=== PATIENT | female | born 1970 | race Caucasian/White ===

== ENCOUNTER 2019-09-30 16:53 | Emergency (ER) | payer OTHER ==
[2019-09-30 17:16] VITALS: BP 127/79
--- NOTE | 2019-09-30 17:28 | ED Physician Documentation ---
Foot Injury - HISTORIAN Historian: patient - HPI Stated Complaint: ft foot pain Chief Complaint: Foot Injury Additional Information: 49 year old female presents with left foot injury. She missed the last 2 steps and rolled her foot. She has swelling to the lateral aspect. Denies any injury to the ankle. Onset: minutes Where: home Severity: mild Context: fall, wearing shoes Associated Symptoms:: swelling, snapping sensation Modifying Factors:: pain on movement - ROS CONST: no problems CVS/RESP: none NEURO: denies: headache GI/: denies: nausea, vomiting MS/SKIN/LYMPH: foot swelling. denies: ankle swelling - PAST HX Past History: other (asthma) Immunizations: UTD Allergies/Adverse Reactions: Allergies Allergy/AdvReac Type Severity Reaction Status Date / Time No Known Allergies Allergy Verified 05/30/16 16:14 Home Medications: Ambulatory Orders Medication Instructions Recorded Albuterol Sulfate [Proair Hfa] 2 puff INH PRN PRN 12/21/13 Albuterol Sulfate [Ventolin HFN] 2.5 mg NEB PRN PRN 05/30/16 Montelukast Sodium [Singulair] 10 mg PO D 05/30/16 - SOCIAL HX Smoking History: non-smoker Alcohol Use: none Drug Use: none - FAMILY HX Family History: none - VITAL SIGNS Vital Signs: Vital Signs Temp Pulse Resp BP Pulse Ox 97.7 F 105 H 18 127/79 95 09/30/19 16:54 09/30/19 16:54 09/30/19 16:54 09/30/19 16:54 09/30/19 16:54 - REVIEWED ASSESSMENTS Nursing Assessment Reviewed: Yes Vitals Reviewed: Yes ED Results Lab/Radiology - Radiology Radiology Impressions: HISTORY: 49-year-old female with left foot pain laterally after injury, fall going down stairs. COMPARISON: None available TECHNIQUE: 3 views of the left foot were performed. FINDINGS: There is a mildly displaced transverse fracture of the proximal metaphysis of the fifth metatarsal, consistent with Callejas fracture. No other fractures are identified about the left foot. 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 Os peroneum is incidentally noted. IMPRESSION: Mildly displaced Callejas fracture of the metaphyseal base of the left fifth metatarsal. Electronically signed on Sep 30, 2019 5:47:23 PM CASE HARDENER by: Amor Huang - Orders Orders: ED Orders Category Date Time Status Apply ice to affected area NOW Care 09/30/19 17:10 Active FOOT 3 VIEWS OR MORE [RAD] Stat Exams 09/30/19 Taken Foot Injury Physical Exam - Physical Exam General Appearance: no acute distress, alert Foot: left foot: bone tenderness, pain, soft tissue tenderness Ankle: left: non-tender, normal inspection, normal range of motion, no evidence of injury Gait: limited by pain Neuro: sensation nml, motor nml Vascular: no vascular compromise Tendons: tendon function nml Leg/Knee/Thigh: uninjured above ankle Skin: intact Head/ENT: nml inspection Neck/Back: nml inspection Resp/CVS: breath sounds nml, heart sounds nml Discharge Clincal Impression: Fracture of fifth metatarsal bone of left foot Referrals: Meredith Chahal MD [Primary Care Provider] - 2 Days Additional Instructions: Rest elevate ice alternate tylenol and ibuprofen as needed for discomfort Tramadol 50mg by mouth every 6 hours as needed for breakthrough pain referral sent to Dr. Ospina Comments: Patient placed in walking boot and given crutches Condition: Good Disposition: 01 HOME, SELF-CARE Decision to Admit: NO Decision Time: 17:50
--- NOTE | 2019-09-30 17:51 | Diagnostic Imaging Report ---
PATIENT MR#: [id number] PATIENT PATIENT NAME: JAVI MOREON DATE OF : 1970 REFERRING PHYSICIAN: Saumya Rhoades EXAM DATE: 09/30/2019 ACCESSION NUMBER: [id number] EXAM DESCRIPTION: FOOT 3 VIEWS OR MORE HISTORY: 49-year-old female with left foot pain laterally after injury, fall going down stairs. COMPARISON: None available TECHNIQUE: 3 views of the left foot were performed. FINDINGS: There is a mildly displaced transverse fracture of the proximal metaphysis of the fifth met atarsal, consistent with Callejas fracture. No other fractures are identified about the left foot. There is congenital fus ion of the middle and distal phalanges of the fifth toe. Os peroneum is incidentally noted. IMPRESSION: Mildly displaced Callejas fracture of the metaphyseal base of the left fifth metatarsal. Read by: Dr. Amor Huang Transcribed by: Transcribed Date: Electronically signed by: Dr. Amor Huang Date signed: 09/30/2019 5:50:40 PM
== END 2019-09-30 17:31 | disposition home or self-care (01) ==
LOC: ED 16:53
DX: S92.352A Displaced fracture of fifth metatarsal bone, left foot, initial encounter for closed fracture (principal); W10.9XXA Fall (on) (from) unspecified stairs and steps, initial encounter; Y92.009 Unspecified place in unspecified non-institutional (private) residence as the place of occurrence of the external cause
CPT/HCPCS: 73630; 99282

== ENCOUNTER 2019-10-02 13:35 | Outpatient (CLI) | payer OTHER ==
[2019-10-02 15:17] LABS: BASOPHILS % 0.3 % (0.0-1.5)
[2019-10-02 15:18] LABS: NEUTROPHILS # 5.7 # k/uL (1.4-7.7)
--- NOTE | 2019-10-02 16:27 | Diagnostic Imaging Report ---
PATIENT MR#: [id number] PATIENT PATIENT NAME: JAVI MORENO DATE OF : 1970 REFERRING PHYSICIAN: ALY BROWNE EXAM DATE: 10/02/2019 ACCESSION NUMBER: [id number] EXAM DESCRIPTION: CHEST 2VIEW HISTORY: Preop evaluation. COMPARISON: None provided. CHEST RADIOGRAPH, FRONTAL AND LATERAL: Upper mediastinum: Not widened. Heart: No cardiomegaly. Lungs: No lobar infiltrate, pulmonary edema, pneumothorax or significant effusion. Skeleton: No acute findings. IMPRESSION: No acute thoracic process. Read by: Dr. Kwame Reaves Transcribed by: Kwame Reaves Transcribed Date: 10/02/2019 4:26:39 PM Electronically signed by: Dr. Kwame Reaves Date signed: 10/02/2019 4:26:39 PM
[2019-10-02 17:57] LABS: eGFR (Non-African) > 60
--- NOTE | 2019-10-03 15:04 | History and Physical Report ---
DATE OF VISIT: 10/02/2019 HISTORY AND PHYSICAL CHIEF COMPLAINT: Left foot injury with date of injury on 09/30/19. HISTORY OF PRESENT ILLNESS: The patient on 09/30/19, which was 2 days ago, tripped on some stairs while holding a basket of laundry and rolled her ankle. She states that she did not hit her head, just my ego. The patient states that she otherwise is feeling fine but is concerned with regards to work, etc. of what she needs to get this to heal. She went to the ER over the weekend and had x-rays done and they told her that she fractured her fifth metatarsal base. She was set up with a boot as well as crutches and has for the most part been able to stay off the left foot. She admits that she has put a little bit of weight on the foot a couple times which do cause a significant amount of time for the patient. She does not admit to any fevers, chills, nausea, vomiting, shortness of breath or chest pain. PAST MEDICAL HISTORY: The patient is negative for diabetes, bleeding disorder, AIDS, HIV, hepatitis, history of anesthesia problems, cardiovascular disease, tobacco use, ethyl alcohol use, stroke, hypertension or substance abuse. She denies any COPD or pulmonary disease but does state that she has had asthma since she was 12 or 13 years old and she is on an inhaler for that. PAST SURGICAL HISTORY: She had 2 hernias that were repaired at ages 5 and 6 years old and another time at 10 years old. I believe one of them was a repeat. She also had dental extractions back in 2011. She denies having any issues with general anesthesia and she has been put under general before. FAMILY HISTORY: Diabetes mellitus is present with her mom and I believe she said her brother. Her mom had a blood cancer of some kind and I believe she . There is lots of breast cancer in the family. Her dad had lung cancer and is an avid smoker. There is no family history of any anesthesia issues either, according to the patient. SOCIAL AND OCCUPATIONAL HISTORY: The patient has a home with several stairs but she is also living with her twin brother there and will have help and will be able to get things adjusted for her to be nonweightbearing to the left lower extremity. She denies use of any kind of tobacco products. REVIEW OF SYSTEMS: General: The patient is feeling well with no illness at this time. The patient denies any blood glucose issues. Skin: She denies any skin lesions or rashes. She does admit a history of shingles 1 year ago that took 6 months to resolve. Eyes: She denies any vision changes or eye problems outside of the fact that she states they do weird things at times but she always passes the eye exams. Cardiovascular: No palpitations or chest pain. Gastrointestinal: No pain or blood in bowel movements. Neurologic: The patient denies any numbness, burning or tingling. Genitourinary: The patient does not have any pain or blood in the urine at all. Hematologic: She denies any blood disorders. Ears, nose and throat: She has a history of ear infections which have greatly improved as she had tubes before. She still gets an infection occasionally. She denies any nose drainage or throat pain. Pulmonary: The patient gets a pneumonia about every 2 years, starting about 7 or 8 years ago. Musculoskeletal: She denies any other joint or muscle pain except for pain in her left foot at this time. Psychiatric: She denies any depression or anxiety. CURRENT MEDICATIONS: Include albuterol, Pro-Air inhaler, Symbicort, Singulair, Flonase, Benadryl, B12, vitamin C, vitamin D, and recently a prescription for tramadol 50 mg which she has not begun using yet as she has been trying to just deal with the pain, she says today. ALLERGIES: THE PATIENT ADMITS TO AN ALLERGY TO LATEX, AND SEASONAL ALLERGIES. SHE STATES THAT HER LATEX ALLERGY IS ONLY IF SHE PUTS A LATEX GLOVE ON HERSELF. SHE STATES SHE DOES JUST FINE IF ANYONE ELSE HAS LATEX AND TOUCHES HER SKIN WITH IT. PERTINENT PHYSICAL EXAM: Mental status: Awake, alert and oriented x3. Head and neck: The patient is atraumatic, normocephalic. She has no tracheal deviation. Eyes: Extraocular muscles are intact and work appropriately. She does seem to have a jerking motion occasionally that happens with her eyes as I would move my finger one direction and she would suddenly jerk past where my finger was beyond where I had taken my finger so far. She was questioned about this and states that she knows her eyes have a funny thing about them that others have questioned and looked into and none has found a reason but she states she always passes the eye exams fine. The eyes did not do that every time I tested certain directions. Heart: The patient has a normal S1 and S2 rhythm. Neurologic: Symmetric sensation to bilateral lower extremities. Ears, nose and throat: The patient does not have any obvious masses or drainage of the ears, nose nor any abnormal tracheal deviation. I did not visualize inside the ears, nose or throat today. There is negative pain with palpation of the sinuses. Lungs: There is a slight rub/high-pitched sound in the lower posterolateral lung field on the right side. Otherwise, clear to auscultation bilaterally. Vascular: 2+ DP and PT pulses, left foot. Capillary refill time is less than 3 seconds to the toes, left foot. There is significant edema noted on the left lateral foot. Dermatologic: There is significant ecchymosis noted on the lateral left foot. There are no open lesions noted. Lymphatic: There are no palpable lymph nodes in the pre or postauricular, or under the jaw areas bilaterally. Musculoskeletal: Pain on palpation noted at the left lateral foot at the fifth metatarsal base. There is no pain on the medial or dorsal foot. There is no pain at the left lateral ankle but there is slight pain on palpation at the ATFL region. I did not do a whole lot of range of motion at all as she is quite painful in the fifth metatarsal base area. ASSESSMENT AND PLAN: After an extensive workup and x-ray review that demonstrated a left fifth metatarsal Callejas fracture slightly displaced, the patient does have the following diagnosis. 1. Left fifth metatarsal base Callejas fracture, mildly displaced. The patient has been placed in a boot and is encouraged to remain nonweightbearing at this time. She also has crutches to help her get around. She today had a large in depth discussion regarding plans for surgery and my reasoning for putting a screw across this fracture or a possible plate with screws on the lateral side depending on if we can get a screw across well. The patient had an in depth conversation regarding the plans for surgery being the above, and the plans for postoperative treatment with respect to likely being in a boot for a couple weeks while the skin heals in stitches, and then having the stitches removed and being placed in a cast for likely an additional at least 2- 4 weeks if not longer if needed. The patient will then be placed likely partial weight-bearing in a boot at the 6-8 week suellen. She will then likely go into an ankle brace at that time if needed. She also knows she will likely need physical therapy at the end possibly depending on well she improves. The patient has had an in depth conversation that answered any questions that she had regarding pre, intra and postoperative course. A full History and Physical was performed today. Consent was discussed with the patient today for a left fifth metatarsal open reduction, internal fixation with plate, screws and/or pin/wires. The conversation included but was not limited to bleeding, infection, undercorrection, overcorrection, non-healing, loss of limb and loss of life and the patient has agreed both by written and verbal consent to go forward with surgery at this time as described above. Consent was signed and placed in the chart. The patient knows that we will strive to get this paperwork and insurance approval done as soon as possible as we would like to get the surgery done as soon as possible. We were initially planning on this coming Wednesday but after further review of the schedule I believe that it will be best to have a little bit more time for the swelling to come down and we can consider doing surgery next week on Wednesday instead, which will be the , and that we at that time will do surgery and plan for a follow-up the following Wednesday, and then leave her for approximately 2 weeks while I am out of town and then take the stitches out at the 2-1/2 week suellen. This is appropriate and I believe will give her the best chance of having less swelling for surgery and more appropriate care working around my being out of town. This actually almost works perfectly for her anyway. We will call her and explain that with her tomorrow. Our plan will be to use a C-arm and a single screw across the fracture line if possible and we will have fifth metatarsal plates as well if needed. The patient had no further questions or concerns today. She appreciated the time I spent with her describing the plan for surgery and afterward. She understands that anything can change including intra or postoperative plan. She knows that she needs to stay away from any aspirin or ibuprofen at this time. She can use Tylenol as needed. She has her tramadol prescription that she has not begun filling and we will let her use that as needed after surgery as well. The patient was placed in a Callejas compression dressing today. This was in order to help her get the swelling down appropriately. The patient has been encouraged to ice behind the left knee daily as much as she can appropriately. The patient had no further questions or concerns and we sent her today for a CBC, CMP, EKG, and chest x-ray in preparation for surgery. A chest x-ray was ordered due to her history of pneumonias and hearing some abnormal lung sounds in the right posterolateral lower lung sound area. The patient understands the need for these studies and she is willing to see Polina Morley at [facility] tomorrow, and so we sent her with a clearance form to have that filled out there and sent back to us tomorrow if possible she is already going. Overall, I believe her health is sufficient that she may not even need clearance but we decided to send it just in case. The patient had no further questions and we will see her next week and call her tomorrow with further plans and plan on surgery next week on Wednesday morning. She knows that she is to be without food or water that morning and bring her inhaler to the hospital. She knows we are planning on MAC anesthesia with local. We will see her next week. We also went over a pictorial description of what the plan is for surgery and she signed understanding that is the plan with a screw, possible plate and screws. Vipul Ospina D.P.M. Lilo Job#: [id number] MTDD
== END 2019-10-02 14:05 ==
LOC: POD 13:35
PROVIDERS: ATTEND Podiatrist Foot & Ankle Surgery
DX: S92.352A Displaced fracture of fifth metatarsal bone, left foot, initial encounter for closed fracture (principal); W18.43XA Slipping, tripping and stumbling without falling due to stepping from one level to another, initial encounter
CPT/HCPCS: 36415; 71046; 80053; 85025; 93005; 99213; G0463

== ENCOUNTER 2019-10-04 09:47 | Outpatient (CLI) | payer OTHER ==
[2019-10-04 12:35] LABS: TSH 1.29 mIU/l (0.465-4.685)
== END 2019-10-04 09:52 ==
LOC: LAB 09:47
PROVIDERS: ATTEND Nurse Practitioner Family
DX: Z13.29 Encounter for screening for other suspected endocrine disorder (principal); Z13.220 Encounter for screening for lipoid disorders; E55.9 Vitamin D deficiency, unspecified
CPT/HCPCS: 36415; 80061; 82306; 84443

== ENCOUNTER 2019-10-16 13:11 | Outpatient (CLI) | payer OTHER ==
--- NOTE | 2019-10-18 15:20 | OP Clinic Progress Note ---
DATE OF VISIT: 10/16/2019 SUBJECTIVE: June is a 49-year-old female presenting to the clinic today for aftercare following surgery that was performed on 10/11/19 consisting of a left fifth metatarsal base Callejas fracture open reduction, internal fixation with a 5.0 screw. The patient presents today stating that she is having some pain in the back of her left heel which is causing a shooting pain every once in awhile but overall she is doing pretty well with just occasional use of the pain medication she was given. She does not admit to any fevers, chills, nausea, vomiting, shortness of breath or chest pain. She has no other complaints or concerns at this time. She was instructed in surgery and given prescriptions for aspirin 325 mg b.i.d. which she should be taking at this time. OBJECTIVE: Vitals: Temperature 97.4 degrees Fahrenheit, heart rate 88, respiration rate 18, blood pressure 121/72. O2 saturation is 97% on room air. Vascular: Palpable DP and PT pulses, left foot. Capillary refill time is less than 3 seconds to the toes of the left foot. There is no edema noted, left foot. Dermatologic: There is still consistent ecchymosis in the second and third toes of the left foot as well as near the base of the fifth metatarsal. There is a good incision that is closed with sutures and is well approximated without strangulation. There is no abnormal drainage or any signs of erythema or warmth or malodor noted, or any other signs of infection. The skin edges have come together nicely and are healing at this time. Musculoskeletal: There is mild pain on palpation at the incision site, of course, as well as minorly at the proximal and dorsal aspect of the foot. The patient does not have any other gross abnormalities noted except for slight prominence at the fifth metatarsal base area where the fracture was located. Neurologic: Light touch sensation is intact to the toes, including the left fifth toe. ASSESSMENT AND PLAN: 1. Aftercare following surgery that was performed on 10/11/19 consisting of left fifth metatarsal base open reduction, internal fixation. PROCEDURE #1: A below-knee cast was applied today with a copious amount of cast padding underneath. The patient was able to have her leg/ankle casted at a 90 degree angle at the ankle. The patient is to leave this on and keep it clean and dry and is to stay completely off the left foot at this time with her crutches that she is using well. She presented today in crutches. Return to the clinic in 2-1/2 weeks where we will remove the cast, perform x- rays and see how we are improving at that time and then reapply a cast at that time. We will consider physical therapy in the future if for any reason we feel that it is needed. The patient knows that I will be gone this Wednesday through the whole next week and is to report to the emergency room if there are any concerns with significant increase in pain or any sort of streaking above or below the cast, etc. The patient understands and we will see her in 2-1/2 weeks otherwise. We will plan on taking out the stitches at that time likely. Vipul Ospina D.P.M. Lilo Job#: [id number] MTDD
== END 2019-10-16 13:35 ==
LOC: POD 13:11
PROVIDERS: ATTEND Podiatrist Foot & Ankle Surgery
DX: Z48.817 Encounter for surgical aftercare following surgery on the skin and subcutaneous tissue (principal)
CPT/HCPCS: 29405; 99212; G0463

== ENCOUNTER 2019-11-02 10:30 | Outpatient (CLI) | payer OTHER ==
--- NOTE | 2019-11-02 14:33 | Diagnostic Imaging Report ---
PATIENT MR#: [id number] PATIENT PATIENT NAME: JAVI MORENO DATE OF : 1970 REFERRING PHYSICIAN: ALY BROWNE EXAM DATE: 11/02/2019 ACCESSION NUMBER: [id number] EXAM DESCRIPTION: FOOT 3 VIEWS OR MORE CLINICAL HISTORY: ORIF follow-up. COMPARISON: September 30, 2019. TECHNIQUE: DX left foot, 3 views Osseous structures: Status post ORIF 5th metatarsal Callejas fracture, with anatomic alignment. Os peron eum noted. Joint spaces: The bones are well aligned. No articular surface abnormality is noted. Soft tissues: There is normal appearance of the soft tissues. IMPRESSION: Expected appearance of the 5th metatarsal fracture ORIF. Read by: Dr. Kwame Reaves Transcribed by: Kwame Reaves Transcribed Date: 11/02/2019 2:33:00 PM Electronically signed by: Dr. Kwame Reaves Date signed: 11/02/2019 2:33:00 PM
--- NOTE | 2019-11-03 10:35 | OP Clinic Progress Note ---
DATE OF VISIT: 11/02/2019 SUBJECTIVE: The patient is seen today, 11/02/19, in her global period after surgery. June is a 49-year-old female presented to clinic today for aftercare following surgery that was performed on 10/11/2019 consisting of left fifth metatarsal base fracture, open-reduction and internal fixation with a screw. The patient has been in a cast for the last two and a half weeks. She is doing well and is excited to get the cast off even briefly until the next cast is placed today. She does not admit to any pain or issues at all except for mild discomfort when pressing around on that area with the cast off today. She does not admit to any issues over the last two and a half weeks. She does not admit to any fevers, chills, nausea, vomiting, shortness of breath or chest pain. She does admit that she is taking aspirin 81 mg twice daily I believe. The patient has stitches in place at this time as well, but itchy. OBJECTIVE: Vitals: Temperature 97.2 degrees Fahrenheit, heart rate 90, respiration rate 18, blood pressure 113/71. O2 saturation is 98% on room air. Vascular: Palpable DP and PT pulses, left foot. Capillary refill time is less than 3 seconds to the toes of the left foot. There is very mild edema still noted in the left foot at this time. Dermatologic: The skin incision is well-coapted with sutures not being too tight. The sutures were removed and there is a little bit of a skin flap over the plantar lateral aspect of the incision and however, the skin is healed underneath and there is no openness or drainage at all. There is no erythema, or malodor or drainage or any warmth or signs of infection noted. There is just some mild edema noted still in the foot, which is normal. There is still some ecchymosis noted in the second and third toes of the left foot, which is normal, but it is improved since the last time. Musculoskeletal: There is mild on palpation still at the base of the fifth metatarsal area on the left foot. Otherwise there are no other gross abnormalities noted, left foot. Neurologic: Light touch sensation is intact to the toes including the fifth toe, left foot. ASSESSMENT AND PLAN: 1. Aftercare following surgery that was performed on 10/11/2019 consisting of left fifth metatarsal base open-reduction and internal fixation with a screw. PROCEDURE #1: A below knee cast was removed today appropriately. PROCEDURE #2: Sutures were removed and dressing applied consisting of a Band- Aid to cover this site. There is no open lesion at this time. PROCEDURE #3: A below knee cast was applied today with appropriate cast padding underneath. The patient tolerated the procedure well. The patient had x-rays performed today while the cast was off to make sure how healing is looking at approximately three and a half weeks since surgery. X- rays were reviewed by myself and I see definite improvement in osseous growth in the fracture site mostly medial and central with less growth lateral. This appears normal for a regular healing or osseous healing. The patient will stay in this cast for the next three weeks. She was given an option of one and a half weeks and then switching to a new cast, but she decided to do three weeks instead this time and at that time, we will plan on removing it and hopefully getting her back into a boot for a week or two. The patient will bring her boot with her next time for that visit. She does not admit to any other issues or problems. I do not plan on doing x-rays at the next visit. We will just see clinically how she is feeling at that time. If any issues then we will consider x-rays. We will consider physical therapy in the future still if there is any weakness or concerns with the patient. Return to clinic in three weeks. Vipul Ospina D.P.M./[employer] [id number] /mab MTDD
== END 2019-11-02 11:00 ==
LOC: POD 10:30
PROVIDERS: ATTEND Podiatrist Foot & Ankle Surgery
DX: Z47.89 Encounter for other orthopedic aftercare (principal)
CPT/HCPCS: 29405; 73630; 99212; G0463

== ENCOUNTER 2019-11-23 08:39 | Outpatient (CLI) | payer OTHER ==
--- NOTE | 2019-11-24 15:58 | OP Clinic Progress Note ---
DATE OF VISIT: 11/23/2019 SUBJECTIVE: June is a 49-year-old female presenting today for aftercare following surgery that was performed on 10/11/2019 consisting of a fifth metatarsal open reduction and internal fixation of the base of the fifth metatarsal left foot. The patient states that she is doing well and has very minimal pain if any. She has been in a cast for the last three weeks which puts her now at six weeks since surgery. The patient does not admit to any fevers, chills, nausea, vomiting, shortness of breath or chest pain. She has been showering with a cover over her cast. OBJECTIVE: Vitals: Temperature 98.4 degrees Fahrenheit, heart rate 93, respiration rate 16, blood pressure 124/60. O2 saturation is 97% on room air. Vascular: Palpable DP and PT pulses, left foot. Capillary refill time is less than 3 seconds to the toes of the left foot. There is still [id number] edema noted in the left foot. This is mainly dorsally and slightly laterally. Dermatologic: The skin incision is healed with slight peeling of overlying skin today. It is completely healed, however. It will take some time for the scar tissue to improve. There is no erythema or any signs of infection or warmth. There is still [id number]-hpdwwdnp edema noted on the left forefoot, which the patient knows she can continue icing. Musculoskeletal: There is still mild 2-3/10 pain on palpation of the fifth metatarsal base of the left foot. The patient also has some swelling in the area more dorsally. The patient has no pain with eversion or dorsiflexion against resistance. The patient has 5/5 muscle strength about the subtalar joint and ankle joint left foot. Neurologic: Light touch sensation is intact to the toes including the fifth toe left foot today. ASSESSMENT AND PLAN: 1. Aftercare following surgery performed on 10/11/2019 consisting of left fifth metatarsal base open reduction and internal fixation with screw. PROCEDURE #1: A below-knee cast was removed today appropriately. The patient was placed in a boot and was encouraged to transition out of the crutches over the next week or two into weightbearing as tolerated in a tall Ortho boot on the left leg. The patient knows that we will consider x-rays at her next visit in two weeks if she is having pain at that time. Mild discomfort is still normal at six weeks following surgery and I believe that getting her a little bit of micromotion with beginning to put some weight in an Ortho boot will allow continued healing. No x-rays were performed today as there were no issues or concerns in the last few weeks. Return to clinic in two weeks for a follow up and x-rays at that time likely to make sure she is looking even better healed. She was told today that she does not need to continue her aspirin once she is back into full weightbearing in a boot on that leg. She understands this and will continue using her vitamin C and vitamin D as she has been on that even before this for other reasons. This is all part of her global period, so again the visit as well as the procedures are not able to be charged for. Vipul Ospina D.P.M. /[employer] [id number] /mab MTDD
== END 2019-11-23 09:05 ==
LOC: POD 08:39
PROVIDERS: ATTEND Podiatrist Foot & Ankle Surgery
DX: Z47.89 Encounter for other orthopedic aftercare (principal)
CPT/HCPCS: 11042; 29700; 99212; G0463